=== PATIENT | male | born 2000 | race American Indian/Alaskan Native ===

== ENCOUNTER 2020-06-05 16:09 | Emergency (ER) | payer MEDICAID ==
--- NOTE | 2020-06-05 16:52 | CR ---
Left hand: 3 views left hand were obtained. Comparison: No prior hand study. Fracture is identified involving the base of the proximal phalanx of the fifth digit. Slight angulation is present. Soft tissue swelling is noted. No additional fracture or other bony abnormality is appreciated. Impression: 1. Fifth finger fracture as noted above. Diagnostic code #3 Study was dictated in MDT
--- NOTE | 2020-06-05 16:54 | CR ---
Right wrist: 4 views the right wrist were obtained. Comparison: No previous study. Joint spaces within the right wrist are maintained. No acute fracture, dislocation or other bony abnormality is appreciated. Impression: 1. No abnormality is appreciated on right wrist exam. Diagnostic code #1 Study was dictated in MDT
[2020-06-05] MEDS ORDERED: Lidocaine 1% 10 ML MDV INJECT ONE (17:05)
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
== END 2020-06-05 17:45 | disposition home or self-care (01) ==
LOC: JD.ED 16:09
DX: S62.617A Displaced fracture of proximal phalanx of left little finger, initial encounter for closed fracture (principal); M25.531 Pain in right wrist; V29.9XXA Motorcycle rider (driver) (passenger) injured in unspecified traffic accident, initial encounter
CPT/HCPCS: 26725; 73110; 73130; 99283; J2001; 26755

== ENCOUNTER 2021-05-21 04:05 | Emergency (ER) | payer MEDICAID ==
--- NOTE | 2021-05-21 04:43 | EDM.PDOC ---
ED HPI GENERAL MEDICAL PROBLEM - General Chief Complaint: Respiratory Problem Stated Complaint: POSS COVID/SOB Time Seen by Provider: 05/21/21 04:24 Source of Information: Reports: Patient History Limitations: Reports: No Limitations - History of Present Illness INITIAL COMMENTS - FREE TEXT/NARRATIVE: Mr. Medina is a very pleasant 20-year-old man who now presents the ED sta ting that he has had chills and dyspnea on exertion around 05/06/2021, a decreased appetite, fatigue, and headache around 05/13/2021, and a cough productive of yellowish sputum around 05/15/2021. He has not checked his temperature. He tried taking DayQuil, but it gave him a rash, and did not help with the symptoms. He has taken acetaminophen for his headache, with some improvement. Here in the ED, the patient is found to be slightly tachypneic at 22 RPM, otherwise, he is hemodynamically stable, afebrile, saturating at 90% on room air. He appears to be comfortable while lying on the gurney, in no acute distress. Prior to 05/06/2021, the patient denies having a recent fever, chills, sore throat, ear pain, nasal or sinus congestion, cough, dyspnea, chest pain, palpitations, nausea, vomiting, constipation, diarrhea, abdominal pain, urinary symptoms, recent weight gain or weight loss, recent bloody bowel movements or black bowel movements, recent joint aches, headaches, or rashes. The patient does not have a PCP. He has not received a COVID vaccination. Chest Pain Score (Numeric/FACES): 5 - Related Data Allergies Allergy/AdvReac Type Severity Reaction Status Date / Time ibuprofen Allergy Rash Verified 05/21/21 04:22 [From DayQuil Sinus Pressure/Pain] pseudoephedrine Allergy Rash Verified 05/21/21 04:22 [From DayQuil Sinus Pressure/Pain] Home Meds: Home Meds . [No Known Home Meds] 05/21/21 [History] Past Medical History - Past Surgical History HEENT Surgical History: Reports: Oral Surgery (dental extractions) Social & Family History - Tobacco Use Tobacco Use Status *Q: Never Tobacco User - Caffeine Use Caffeine Use: Reports: None - Alcohol Use Alcohol Use History: No - Recreational Drug Use Recreational Drug Use: No - Living Situation & Occupation Living situation: Reports: Single, Other (Dorm) Occupation: Student ([employer]) ED ROS GENERAL - Review of Systems Review Of Systems: Comprehensive ROS is negative, except as noted in HPI. ED EXAM, GENERAL - Physical Exam Exam: See Below Exam Limited By: No Limitations General Appearance: Alert, WD/WN, No Apparent Distress Eye Exam: Bilateral Eye: EOMI, Normal Inspection Ears: Normal External Exam, Hearing Grossly Normal Nose: Normal Inspection Throat/Mouth: Normal Inspection, Normal Lips, Normal Voice, No Airway Compromise Head: Atraumatic, Normocephalic Neck: Normal Inspection, Full Range of Motion Respiratory/Chest: No Respiratory Distress, Lungs Clear, Normal Breath Sounds, No Accessory Muscle Use. No: Decreased Breath Sounds, Crackles, Rhonchi, Wheezing, Stridor, Prolonged Expiration Cardiovascular: Normal Peripheral Pulses, Regular Rate, Rhythm, No Edema, No Gallop, No JVD, No Murmur, No Rub Peripheral Pulses: 3+: Radial (L), Radial (R) GI/Abdominal: Normal Bowel Sounds, Soft, Non-Tender, No Organomegaly, No Distention, No Abnormal Bruit, No Mass Back Exam: Normal Inspection, Full Range of Motion, NT Extremities: Normal Inspection, Normal Range of Motion, No Pedal Edema, Normal Capillary Refill Neurological: Alert, Oriented, Normal Cognition, No Motor/Sensory Deficits Psychiatric: Normal Affect Skin Exam: Warm, Dry, Intact, Normal Color, No Rash #1 Interpretation EKG Date: 05/21/21 Time: 04:45 Rhythm: NSR Rate (Beats/Min): 96 Barnhart: RAD-Right Barnhart Deviation P-Wave: Enlarged (possible LAE) QRS: Normal (Late transition) ST-T: Normal QT: Normal Comparison: NA - No Prior EKG Course - Vital Signs Last Recorded V/S: Last Vital Signs Temp 37.7 C 05/21/21 04:19 Pulse 96 05/21/21 04:19 Resp 22 H 05/21/21 04:19 BP 122/71 05/21/21 04:19 Pulse Ox 90 L 05/21/21 04:19 - Orders/Labs/Meds Orders: Active Orders 24 hr Category Date Time Status Vital Signs [RC] Q15M Care 05/21/21 05:35 Active Chest 1V Frontal [CR] Stat Exams 05/21/21 04:35 Taken BLOOD CULTURE [MREF] Stat Lab 05/21/21 04:55 Received BLOOD CULTURE [MREF] Stat Lab 05/21/21 05:00 Received EPINEPHrine [Adrenalin] Med 05/21/21 05:34 Active 0.3 mg IM ONETIME PRN Famotidine [Pepcid] Med 05/21/21 05:34 Active 20 mg IVPUSH ONETIME PRN Sodium Chloride 0.9% [Saline Flush] Med 05/21/21 05:45 Active 30 ml FLUSH ASDIRECTED diphenhydrAMINE [Benadryl] Med 05/21/21 05:34 Active 50 mg IVPUSH ONETIME PRN methylPREDNISolone Sod Succ [Solu-MEDROL] Med 05/21/21 05:34 Active 125 mg IVPUSH ONETIME PRN Blood Culture x2 Reflex Set [OM.PC] Stat Oth 05/21/21 04:37 Ordered Medication Orders Diphenhydramine HCl (Diphenhydramine 50 Mg/Ml Sdv) 50 mg IVPUSH ONETIME PRN PRN Reason: hypersensitivity reaction Epinephrine HCl (Epinephrine 1 Mg/Ml Sdv) 0.3 mg IM ONETIME PRN PRN Reason: hypersensitivity reaction Famotidine (Famotidine 20 Mg/2 Ml Sdv) 20 mg IVPUSH ONETIME PRN PRN Reason: hypersensitivity reaction Methylprednisolone Sodium Succinate (Methylprednisolone Sodium Succinate 125 Mg/2 Ml Sdv) 125 mg IVPUSH ONETIME PRN PRN Reason: hypersensitivity reaction Sodium Chloride (Sodium Chloride 0.9% 10 Ml Syringe) 30 ml FLUSH ASDIRECTED RENNY Last Admin: 05/21/21 06:50 Dose: 30 ml Documented by: FREDDIE Labs: Laboratory Tests 05/21/21 05/21/21 05/21/21 Range/Units 04:28 04:55 04:55 WBC 6.48 (4.23-9.07) K/mm3 RBC 5.33 (4.63-6.08) M/mm3 Hgb 14.9 (13.7-17.5) gm/dl Hct 46.4 (40.1-51.0) % MCV 87.1 (79.0-92.2) fl MCH 28.0 (25.7-32.2) pg MCHC 32.1 L (32.2-35.5) g/dl RDW Std Deviation 45.1 H (35.1-43.9) fL Plt Count 215 (163-337) K/mm3 MPV 10.6 (9.4-12.3) fl Neutrophils % (Manual) 80 H (40-60) % Band Neutrophils % 0 (0-10) % Lymphocytes % (Manual) 13 L (20-40) % Atypical Lymphs % 0 % Monocytes % (Manual) 7 (2-10) % Eosinophils % (Manual) 0 L (0.8-7.0) % Basophils % (Manual) 0 L (0.2-1.2) Platelet Estimate Adequate RBC Morph Comment Normal D-Dimer, Quantitative (0.19-0.50) mg/L Sodium 142 (136-145) mEq/L Potassium 4.5 (3.5-5.1) mEq/L Chloride 105 (98-107) mEq/L Carbon Dioxide 23 (21-32) mEq/L Anion Gap 18.5 H (5-15) BUN 9 (7-18) mg/dL Creatinine 1.0 (0.7-1.3) mg/dL Est Cr Clr Drug Dosing 117.83 mL/min Estimated GFR (MDRD) > 60 (>60) mL/min BUN/Creatinine Ratio 9.0 L (14-18) Glucose 106 H (70-99) mg/dL Lactic Acid (0.4-2.0) mmol/L Calcium 8.0 L (8.5-10.1) mg/dL Magnesium 1.9 (1.8-2.4) mg/dL Total Bilirubin 0.5 (0.2-1.0) mg/dL AST 40 H (15-37) U/L ALT 39 (16-63) U/L Alkaline Phosphatase 77 (46-116) U/L C-Reactive Protein 5.7 H* (<1.0) mg/dL Total Protein 7.7 (6.4-8.2) g/dl Albumin 3.6 (3.4-5.0) g/dl Globulin 4.1 gm/dL Albumin/Globulin Ratio 0.9 L (1-2) SARS-CoV-2 RNA (OZIEL) Positive H (NEGATIVE) 05/21/21 05/21/21 Range/Units 04:55 04:55 WBC (4.23-9.07) K/mm3 RBC (4.63-6.08) M/mm3 Hgb (13.7-17.5) gm/dl Hct (40.1-51.0) % MCV (79.0-92.2) fl MCH (25.7-32.2) pg MCHC (32.2-35.5) g/dl RDW Std Deviation (35.1-43.9) fL Plt Count (163-337) K/mm3 MPV (9.4-12.3) fl Neutrophils % (Manual) (40-60) % Band Neutrophils % (0-10) % Lymphocytes % (Manual) (20-40) % Atypical Lymphs % % Monocytes % (Manual) (2-10) % Eosinophils % (Manual) (0.8-7.0) % Basophils % (Manual) (0.2-1.2) Platelet Estimate RBC Morph Comment D-Dimer, Quantitative 0.79 H (0.19-0.50) mg/L Sodium (136-145) mEq/L Potassium (3.5-5.1) mEq/L Chloride (98-107) mEq/L Carbon Dioxide (21-32) mEq/L Anion Gap (5-15) BUN (7-18) mg/dL Creatinine (0.7-1.3) mg/dL Est Cr Clr Drug Dosing mL/min Estimated GFR (MDRD) (>60) mL/min BUN/Creatinine Ratio (14-18) Glucose (70-99) mg/dL Lactic Acid 0.8 (0.4-2.0) mmol/L Calcium (8.5-10.1) mg/dL Magnesium (1.8-2.4) mg/dL Total Bilirubin (0.2-1.0) mg/dL AST (15-37) U/L ALT (16-63) U/L Alkaline Phosphatase (46-116) U/L C-Reactive Protein (<1.0) mg/dL Total Protein (6.4-8.2) g/dl Albumin (3.4-5.0) g/dl Globulin gm/dL Albumin/Globulin Ratio (1-2) SARS-CoV-2 RNA (OZIEL) (NEGATIVE) Meds: Medications Generic Name Dose Route Start Last Admin Trade Name Freq PRN Reason Stop Dose Admin Diphenhydramine HCl 50 mg 05/21/21 05:34 Diphenhydramine 50 Mg/Ml Sdv IVPUSH ONETIME PRN hypersensitivity reaction Epinephrine HCl 0.3 mg 05/21/21 05:34 Epinephrine 1 Mg/Ml Sdv IM ONETIME PRN hypersensitivity reaction Famotidine 20 mg 05/21/21 05:34 Famotidine 20 Mg/2 Ml Sdv IVPUSH ONETIME PRN hypersensitivity reaction Methylprednisolone Sodium Succinate 125 mg 05/21/21 05:34 Methylprednisolone Sodium Succinate 125 Mg/2 Ml Sdv IVPUSH ONETIME PRN hypersensitivity reaction Sodium Chloride 30 ml 05/21/21 05:45 05/21/21 06:50 Sodium Chloride 0.9% 10 Ml Syringe FLUSH 30 ml ASDIRECTED RENNY Administration Discontinued Medications Generic Name Dose Route Start Last Admin Trade Name Freq PRN Reason Stop Dose Admin CASIRIVIMAB/IMDEVIMAB 10 ml/ 110 mls @ 220 mls/hr 05/21/21 05:34 05/21/21 06:20 Sodium Chloride IV 05/21/21 06:03 220 mls/hr ONETIME ONE Administration - Re-Assessments/Exams Free Text/Narrative Re-Assessment/Exam: 05/21/21 04:38 The patient's history and physical examination are concerning for COVID-19. At this time, his oxygen saturation is 91% on room air, therefore he does not require supplemental oxygen, but he is getting close. I have ordered a work-up and includes numerous blood tests, 2 sets of blood cultures, a swab for the SARS-CoV-2 virus, a portable chest x-ray, and an ECG. 05/21/21 04:58 Portable chest radiograph reviewed. The cardiac silhouette is within normal limits. No pulmonary vascular congestion. No pleural effusions seen on this AP view. There are bilateral hazy infiltrates, consistent with COVID-19 pneumonia . No pneumothorax. There is thoracic scoliosis. Formal read per the Radiologist pending. 05/21/21 05:31 The patient's a swab for the SARS-CoV-2 virus has returned positive. 05/21/21 05:35 Based on the patient's BMI, he is a candidate for an infusion of the monoclonal antibody Regen-Cov. We discussed that at length, including that it is an emergency use authorization medication, intended to decrease the likelihood of patients diagnosed with COVID-19 from developing severe symptoms or , and that it does not treat current symptoms. I explained that Regen-Cov is still under investigation, that it is not fully FDA approved, and that the potential benefits and risks of the medication are not fully known. The patient was notified that if he receives Regen-Cov, that it may decrease his immune response to a COVID vaccination, should he decide to get it after he recovers from his current illness. I explained that there is a possibility that he could have an allergic reaction either during or after the infusion, as well as brief pain, bleeding, bruising of the skin, soreness, swelling, and possible infection at the infusion site. Other side effects could occur. I discussed that there are other potential treatment options that are currently not FDA approved to treat COVID-19. The patient was notified that the infusion takes about half an hour, after which he would be expected to remain in the ED for another hour to observe for possible side effects. He was offered the "patient and caregiver HELEN Regen-Cov fact sheet" to read and review. All questions were answered. The patient expressed understanding, and would like to proceed with the infusion. 05/21/21 06:51 The patient's CBC is unremarkable. His CMP is remarkable for slight hyperglycemia of 106, and is otherwise unremarkable. His magnesium level is within normal limits at 1.9. His lactic acid level is within normal limits at 0.8. His CRP is elevated at 5.7. His D-dimer is modestly elevated at 0.79. His infusion of Regen-Cov is finishing just about now. We will wait another hour before discharging him home. We will get him a finger pulse oximeter. He should return to the ED if his SpO2 drops below 90%, persistently. He will need to strictly isolate. I am recommending that he get retested on 05/27/2021. Departure - Departure Time of Disposition: 08:00 Disposition: Home, Self-Care 01 Condition: Fair Clinical Impression: COVID-19 - Discharge Information *PRESCRIPTION DRUG MONITORING PROGRAM REVIEWED*: Not Applicable *COPY OF PRESCRIPTION DRUG MONITORING REPORT IN PATIENT STEVAN: Not Applicable Referrals: PCP,None [Primary Care Provider] - Forms: ED Department Discharge Additional Instructions: You were seen in the emergency room after developing chills with shortness of breath on exertion, a decreased appetite, fatigue, headache, and cough. Work-up in the ER included numerous blood tests, 2 sets of blood cultures, a swab for the SARS-CoV-2 virus, a chest x-ray, and an ECG. Your swab for the SARS-CoV-2 virus returned positive, and some of your blood tests were consistent with that, as well. Your chest x-ray showed bilateral infiltrates consistent with COVID-19 pneumonia. You were treated with an infusion of the monoclonal antibodies Regen-Cov. As discussed, Regen-Cov was not given to treat your current symptoms, but was given it to reduce your risk of developing severe illness or . It is imperative that you strictly isolate. We recommend that you get retested for COVID-19 on 05/27/2021. Do not break isolation until/unless you test negative. You have been provided with a finger pulse oximeter. We recommend that you check your oxygen level several times a day. Return to the ER if your oxygen level drops below 90%, persistently. Sepsis Event Note (ED) - Focused Exam Vital Signs: Vital Signs Temp Pulse Resp BP Pulse Ox 05/21/21 04:19 37.7 C 96 22 H 122/71 90 L - My Orders Last 24 Hours: My Active Orders 05/21/21 04:35 Chest 1V Frontal [CR] Stat 05/21/21 04:37 Blood Culture x2 Reflex Set [OM.PC] Stat 05/21/21 04:55 BLOOD CULTURE [MREF] Stat 05/21/21 05:00 BLOOD CULTURE [MREF] Stat 05/21/21 05:34 EPINEPHrine [Adrenalin] 0.3 mg IM ONETIME PRN Famotidine [Pepcid] 20 mg IVPUSH ONETIME PRN diphenhydrAMINE [Benadryl] 50 mg IVPUSH ONETIME PRN methylPREDNISolone Sod Succ [Solu-MEDROL] 125 mg IVPUSH ONETIME PRN 05/21/21 05:35 Vital Signs [RC] Q15M 05/21/21 05:45 Sodium Chloride 0.9% [Saline Flush] 30 ml FLUSH ASDIRECTED - Assessment/Plan Last 24 Hours: My Active Orders 05/21/21 04:35 Chest 1V Frontal [CR] Stat 05/21/21 04:37 Blood Culture x2 Reflex Set [OM.PC] Stat 05/21/21 04:55 BLOOD CULTURE [MREF] Stat 05/21/21 05:00 BLOOD CULTURE [MREF] Stat 05/21/21 05:34 EPINEPHrine [Adrenalin] 0.3 mg IM ONETIME PRN Famotidine [Pepcid] 20 mg IVPUSH ONETIME PRN diphenhydrAMINE [Benadryl] 50 mg IVPUSH ONETIME PRN methylPREDNISolone Sod Succ [Solu-MEDROL] 125 mg IVPUSH ONETIME PRN 05/21/21 05:35 Vital Signs [RC] Q15M 05/21/21 05:45 Sodium Chloride 0.9% [Saline Flush] 30 ml FLUSH ASDIRECTED
[2021-05-21] MEDS ORDERED: methylPREDNISolone Sodium Succinate 125 MG/2 ML SDV IVPUSH PRN (05:34)
[2021-05-21] MEDS ORDERED: diphenhydrAMINE 50 MG/ML SDV IVPUSH PRN (05:34)
[2021-05-21] MEDS ORDERED: Famotidine 20 MG/2 ML SDV IVPUSH PRN (05:34)
[2021-05-21] MEDS ORDERED: EPINEPHrine 1 MG/ML SDV IM PRN (05:34)
[2021-05-21] MEDS ORDERED: Sodium Chloride 0.9% 10 ML Syringe FLUSH SCH (05:45)
--- NOTE | 2021-05-21 09:44 | CR ---
Chest: Portable view of the chest was obtained. Comparison: No prior chest imaging is available. Patchy area of increased density is seen within the left perihilar region. Mild density within the right lung base is seen. Heart size and mediastinum are within normal limits. Scoliosis is noted within the spine. No acute osseous abnormality is seen. Impression: 1. Increased density within both sides of the chest, worse on the left side. Please exclude COVID pneumonia. Diagnostic code #3
== END 2021-05-21 08:17 | disposition home or self-care (01) ==
LOC: JD.ED 04:05
DX: U07.1 COVID-19 (principal); R79.89 Other specified abnormal findings of blood chemistry; Z88.8 Allergy status to other drugs, medicaments and biological substances
CPT/HCPCS: 36415; 71045; 80053; 83605; 83735; 85007; 85027; 85379; 86140; 87040; 87635; 93005; 99285; M0243; Q0243; U0002